=== PATIENT | male | born 1990 | race African-American/Black ===

== ENCOUNTER 2023-12-05 08:19 | Emergency (ER) | payer OTHER ==
[2023-12-05] MEDS ORDERED: Boostrix 0.5 ML (Tdap) VIAL (>/=7 yrs of age) ONE (08:46)
[2023-12-05] MEDS ORDERED: Bacitracin 1 PK ONE (08:52)
[2023-12-05] MEDS ORDERED: Lidocaine 2% Viscous 10 mL, Alum & Magn 30 mL SSW SCH (09:45)
== END 2023-12-05 10:00 | disposition home or self-care (01) ==
LOC: CSHERS 08:19
DX: S61.412A Laceration without foreign body of left hand, initial encounter (principal); W20.8XXA Other cause of strike by thrown, projected or falling object, initial encounter; Z23 Encounter for immunization
CPT/HCPCS: 90471; 90715